=== PATIENT | male | born 1970 | race American Indian/Alaskan Native ===

== ENCOUNTER 2017-04-30 08:56 | Emergency (ER) | payer BC ==
[2017-04-30 09:02] VITALS: BP 147/86
[2017-04-30] MEDS ORDERED: BICILLIN L-A IM ONE ×2 (10:14→10:16)
--- NOTE | 2017-04-30 10:35 | Emergency Department Report ---
Minor Respiratory - HPI Chief Complaint: Earache Stated Complaint: RIGHT EAR/THROAT PAIN Time Seen by Provider: 04/30/17 09:25 Duration: 5 Days Pain Location: Throat, Ear (right ear pressure) Severity: moderate Minor Respiratory: Yes Sore Throat, Yes Able to Tolerate Fluids, Yes Ear Pain ( right), Yes Sick Contacts, Yes Fever, No Rhinorrhea, No Cough, No Hemoptysis, No Chest Pain, No Shortness of Breath Other History: This is a 46 y.o. male that presents with sore throat and right ear pain for 5 days. Patient reports taking theraflu, chloraseptic spray, and advil with no improvement of symptoms for a 3 days. He is having difficulty swallowing liquids and solids. Pain is 10/10 on scale for throat and feels like something sharp is going down throat with swallows. Denies SOB, chest pain, rhinorrhea, body aches, and cough. ED Review of Systems ROS: Stated complaint: RIGHT EAR/THROAT PAIN Other details as noted in HPI Constitutional: fever, malaise. denies: chills, diaphoresis, weakness ENT: ear pain (right ear pressure), throat pain. denies: dental pain, hearing loss, epistaxis, congestion Respiratory: denies: cough, shortness of breath, wheezing Cardiovascular: denies: chest pain, palpitations Gastrointestinal: denies: abdominal pain, nausea, diarrhea Neurological: denies: headache, weakness, paresthesias Psychiatric: denies: anxiety, depression ED Past Medical Hx - Past Medical History Hx Diabetes: Yes - Surgical History Additional Surgical History: KNEE AND WRIST - Social History Smoking Status: Never Smoker Substance Use Type: None - Medications Home Medications: Home Medications Medication Instructions Recorded Confirmed Last Taken Type Penicillin V Potassium 500 mg PO BID 10 Days #20 tablet 04/30/17 Unknown Rx Minor Respiratory Exam - Exam General: Vital signs noted. No distress. Alert and acting appropriately. HEENT: Yes Pharyngeal Erythema (red swollen tonsils), Yes Pharyngeal Exudates, Yes Moist Mucous Membranes, No Rhinorrhea, No Conjuctival Injection, No Frontal Tenderness, No Maxillary Tenderness Ear: Neither TM Bulge, Neither TM Erythema, Neither EAC Pain, Neither EAC Discharge Neck: Yes Supple, No Adenopathy Lungs: Yes Good Air Exchange, No Wheezes, No Ronchi, No Stridor, No Cough, No Labored Respirations, No Retractions, No Use of Accessory Muscles, No Other Abnormal Lung Sounds Heart: Yes Regular, No Murmur Abdomen: Yes Normal Bowel Sounds, No Tenderness, No Peritoneal Signs Skin: No Rash, No Edema Neurologic: Alert and oriented, no deficits. Musculoskeletal: Unremarkable. ED Course Vital Signs 04/30/17 08:59 Temperature 99.9 F H Pulse Rate 108 H Respiratory 20 Rate Blood Pressure 147/86 O2 Sat by Pulse 97 Oximetry ED Medical Decision Making - Medical Decision Making This is a 46 y.o. male that presents with sore throat and right ear pain for 5 days. Patient examined by me and stable. No distress noted. Rapid strep obtained and positive for strep A. Vitals stable. Given bicillin I-A 1.2 mL IM once in ER. Start penicillin V 500 mg po bid x 10 days. Take tylenol or ibuprofen for pain. Discussed plan with patient and he agreed with plan to treat outpatient. Discharged home. Return to work tomorrow. Follow up with PCP in 48-72 hours. Critical care attestation.: If time is entered above; I have spent that time in minutes in the direct care of this critically ill patient, excluding procedure time. ED Disposition Clinical Impression: Acute streptococcal pharyngitis, Sore throat, Otalgia, right ear Disposition: - TO HOME OR SELFCARE Is pt being admited?: No Does the pt Need Aspirin: No Condition: Stable Instructions: Strep Throat (ED) Additional Instructions: Expect symptoms to improve within 3 or 4 days. There is no need for bed rest or isolation. Use tyleonl or ibuprofen for symptoms of sore throat, headache, and fever. Return to work in 24 hours of taking antibiotics. Follow up with Primary Care Provider in 48-72 hours. Prescriptions: Penicillin V Potassium 500 mg PO BID 10 Days #20 tablet Referrals: [facility] [Outside] - 3-5 Days [facility] [Outside] - 3-5 Days [facility] [Outside] - 3-5 Days Forms: Work/School Release Form(ED) Time of Disposition: 10:45 Print Language: ARMENIAN
== END 2017-04-30 10:50 | disposition home or self-care (01) ==
LOC: ED 08:56
DX: J02.0 Streptococcal pharyngitis (principal); H92.01 Otalgia, right ear; E11.9 Type 2 diabetes mellitus without complications
CPT/HCPCS: 87430; 96372; 99283; J0561